=== PATIENT | male | born 1980 | race Caucasian/White ===

== ENCOUNTER 2017-09-26 12:40 | Emergency (ER) | payer SELFPAY ==
[2017-09-26] MEDS ORDERED: Aspirin 81 MG Tab.Chew PO ONE (13:40)
[2017-09-26] MEDS ORDERED: GI Cocktail Oral Solution 30 ML PO ONE (13:44)
[2017-09-26] MEDS ORDERED: Sodium Chloride 0.9% 10 ML Syringe FLUSH PRN (13:44)
--- NOTE | 2017-09-26 13:46 | EDM.PDOC ---
ED HPI GENERAL MEDICAL PROBLEM - General Chief Complaint: Chest Pain Stated Complaint: [id number] CHEST PAIN Time Seen by Provider: 09/26/17 13:30 Source of Information: Reports: Patient, RN, RN Notes Reviewed History Limitations: Reports: Language Barrier - History of Present Illness INITIAL COMMENTS - FREE TEXT/NARRATIVE: Arrives to ER by POV with c/o upper midline chest pain that is described as an ache with burning pain radiating into the throat, and also an ache in the B/L elbows with tingling into the hands and fingers that began this morning. Three days ago pt had onset of nausea and diarrhea with loss of appetite, and last night he vomited once. He report decreased appetite and has been eating soups and liquids only. Denies fevers. Admits to some chills, but not today. He has been taking pepto bismal without much relief. 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: Other (see below) (pepto bismal) Upper Chest Pain Score (Numeric/FACES): 7 - Related Data Allergies Allergy/AdvReac Type Severity Reaction Status Date / Time No Known Allergies Allergy Verified 09/26/17 13:32 Home Meds: Home Meds Bismuth Subsalicylate [Pepto-Bismol] 15 ml PO ASDIRECTED PRN 09/26/17 [History] Past Medical History HEENT History: Reports: None Cardiovascular History: Reports: None Respiratory History: Reports: None Gastrointestinal History: Reports: GERD Genitourinary History: Reports: None Musculoskeletal History: Reports: None Neurological History: Reports: None Psychiatric History: Reports: None Endocrine/Metabolic History: Reports: None Hematologic History: Reports: None Immunologic History: Reports: None Oncologic (Cancer) History: Reports: None Dermatologic History: Reports: None - Past Surgical History Head Surgeries/Procedures: Reports: None Social & Family History - Family History Family Medical History: Unobtainable - Tobacco Use Smoking Status *Q: Former Smoker Used Tobacco, but Quit: Yes Month Tobacco Last Used: july Second Hand Smoke Exposure: No - Caffeine Use Caffeine Use: Reports: None - Recreational Drug Use Recreational Drug Use: No - Living Situation & Occupation Occupation: Employed (dairy farmer) ED ROS GENERAL - Review of Systems Review Of Systems: ROS reveals no pertinent complaints other than HPI. ED EXAM, GENERAL - Physical Exam Exam: See Below Exam Limited By: Language Barrier General Appearance: Alert, WD/WN, No Apparent Distress Eye Exam: Bilateral Eye: Normal Inspection (no scleral icterus) Ears: Normal External Exam, Normal Canal, Hearing Grossly Normal, Normal TMs Nose: Normal Inspection, Normal Mucosa, No Blood Throat/Mouth: Normal Inspection, Normal Lips, Normal Teeth, Normal Gums, Normal Oropharynx, Normal Voice, No Airway Compromise Head: Atraumatic, Normocephalic Neck: Normal Inspection, Supple, Non-Tender, Full Range of Motion, Other ( shoddy cervical lymphadenopathy, no nuchal rigidity) Respiratory/Chest: No Respiratory Distress, Lungs Clear, Normal Breath Sounds, No Accessory Muscle Use, Chest Non-Tender Cardiovascular: Normal Peripheral Pulses, Regular Rate, Rhythm, No Edema, No Gallop, No JVD, No Murmur, No Rub GI/Abdominal: Normal Bowel Sounds, Soft, Non-Tender, No Organomegaly, No Distention, No Abnormal Bruit, No Mass (Male) Exam: Deferred Rectal (Males) Exam: Deferred Back Exam: Normal Inspection, Full Range of Motion. No: CVA Tenderness (L), CVA Tenderness (R) Extremities: Normal Inspection, Normal Range of Motion, Non-Tender, Normal Capillary Refill, No Pedal Edema Neurological: Alert, Oriented, CN II-XII Intact, Normal Cognition, Normal Gait, No Motor/Sensory Deficits Psychiatric: Normal Affect Skin Exam: Warm, Dry, Intact, Normal Color, No Rash EKG INTERPRETATION EKG Date: 09/26/17 Time: 13:23 Rhythm: Other (SR) Rate (Beats/Min): 74 Marissa: Normal P-Wave: Present QRS: Other (LAFB) ST-T: Normal QT: Normal Comparison: NA - No Prior EKG Course - Vital Signs Last Recorded V/S: Last Vital Signs Temp 36.1 C 09/26/17 13:26 Pulse 79 09/26/17 13:26 Resp 16 09/26/17 13:26 BP 140/87 09/26/17 13:26 Pulse Ox 100 09/26/17 13:26 - Orders/Labs/Meds Orders: Active Orders 24 hr Category Date Time Status EKG 12 Lead [EKG Documentation Completion] [RC] STAT Care 09/26/17 13:43 Active EKG Documentation Completion [RC] URGENT Care 09/26/17 13:36 Active Peripheral IV Care [RC] . DIRECTED Care 09/26/17 13:44 Active Chest 1V Frontal [CR] Stat Exams 09/26/17 13:43 Taken CULTURE STREP A CONFIRMATION [] Stat Lab 09/26/17 13:55 Results STREP SCRN A RAPID W CULT CONF [] Stat Lab 09/26/17 13:55 Results Sodium Chloride 0.9% [Saline Flush] Med 09/26/17 13:44 Active 10 ml FLUSH ASDIRECTED PRN Peripheral IV Insertion Adult [OM.PC] Stat Oth 09/26/17 13:43 Ordered Medication Orders Sodium Chloride (Saline Flush) 10 ml FLUSH ASDIRECTED PRN PRN Reason: Keep Vein Open Last Admin: 09/26/17 13:48 Dose: 10 ml Labs: Laboratory Tests 09/26/17 09/26/17 Range/Units 13:54 14:11 WBC 11.6 H (5.0-10.0) 10^3/uL RBC 4.21 L (4.6-6.2) 10^6/uL Hgb 14.4 (14.0-18.0) g/dL Hct 40.0 (40.0-54.0) % MCV 95.0 (80-100) fL MCH 34.2 H (27.0-34.0) pg MCHC 36.0 H (33.0-35.0) g/dL Plt Count 154 (150-450) 10^3/uL Neut % (Auto) 79.7 H (42.2-75.2) % Lymph % (Auto) 11.2 L (20.5-50.1) % [place] % (Auto) 8.9 H (2-8) % Eos % (Auto) 0.2 L (1.0-3.0) % Baso % (Auto) 0.0 (0.0-1.0) % Sodium 133 L (135-145) mmol/L Potassium 3.3 L (3.6-5.0) mmol/L Chloride 100 L (101-111) mmol/L Carbon Dioxide 23.0 (21.0-31.0) mmol/L Anion Gap 13.3 BUN 10 (7-18) mg/dL Creatinine 0.7 (0.6-1.3) mg/dL Est Cr Clr Drug Dosing 132.92 mL/min Estimated GFR (MDRD) > 60 BUN/Creatinine Ratio 14.28 Glucose 119 H (74-105) mg/dL Calcium 8.2 L (8.4-10.2) mg/dl Total Bilirubin 0.4 (0.2-1.0) mg/dL AST 40 (10-42) IU/L ALT 49 (10-60) IU/L Alkaline Phosphatase 58 (42-121) IU/L Troponin I < 0.02 (0.00-0.02) ng/ml Total Protein 6.8 (6.7-8.2) g/dl Albumin 3.5 (3.2-5.5) g/dl Globulin 3.3 Albumin/Globulin Ratio 1.06 Amylase 49 (28-100) U/L Lipase 19 L (22-51) U/L Meds: Medications Generic Name Dose Route Start Last Admin Trade Name Freq PRN Reason Stop Dose Admin Sodium Chloride 10 ml 09/26/17 13:44 09/26/17 13:48 Saline Flush FLUSH 10 ml ASDIRECTED PRN Administration Keep Vein Open Discontinued Medications Generic Name Dose Route Start Last Admin Trade Name Freq PRN Reason Stop Dose Admin Al Hydroxide/Mg Hydroxide 30 ml 09/26/17 13:44 09/26/17 13:48 Gi Cocktail PO 09/26/17 13:45 30 ml ONETIME ONE Administration Aspirin 324 mg 09/26/17 13:40 09/26/17 13:47 Aspirin PO 09/26/17 13:41 324 mg ONETIME ONE Administration Famotidine 20 mg 09/26/17 14:53 Pepcid IVPUSH 09/26/17 14:54 ONETIME ONE - Radiology Interpretation Free Text/Narrative:: CXR: no acute process, see Rad. report. Departure - Departure Time of Disposition: 14:59 Disposition: Home, Self-Care 01 Condition: Good Clinical Impression: Atypical chest pain Gastroesophageal reflux disease Qualifiers: Esophagitis presence: with esophagitis Qualified Code(s): K21.0 - Gastro- esophageal reflux disease with esophagitis Gastritis Qualifiers: Gastritis type: unspecified gastritis Chronicity: acute Gastritis bleeding: without bleeding Qualified Code(s): K29.00 - Acute gastritis without bleeding Instructions: Nonspecific Chest Pain, [id number], Gastritis, Adult, Food Choices for Gastroesophageal Reflux Disease, Adult, [id number], Gastroesophageal Reflux Disease, Adult, [id number] Forms: ED Department Discharge Additional Instructions: Receta: Omeprazole 20mg. Medicina para la gastritis. Trini cristian tableta de todos los wheat allen 30 wheat. Gilles doctor en la clinica en 7 de 10 wheat otra vez. - My Orders Last 24 Hours: My Active Orders 09/26/17 13:36 EKG Documentation Completion [RC] URGENT 09/26/17 13:43 EKG 12 Lead [EKG Documentation Completion] [RC] STAT Chest 1V Frontal [CR] Stat Peripheral IV Insertion Adult [OM.PC] Stat 09/26/17 13:44 Peripheral IV Care [RC] . DIRECTED Sodium Chloride 0.9% [Saline Flush] 10 ml FLUSH ASDIRECTED PRN 09/26/17 13:55 CULTURE STREP A CONFIRMATION [RM] Stat STREP SCRN A RAPID W CULT CONF [RM] Stat - Assessment/Plan Last 24 Hours: My Active Orders 09/26/17 13:36 EKG Documentation Completion [RC] URGENT 09/26/17 13:43 EKG 12 Lead [EKG Documentation Completion] [RC] STAT Chest 1V Frontal [CR] Stat Peripheral IV Insertion Adult [OM.PC] Stat 09/26/17 13:44 Peripheral IV Care [RC] . DIRECTED Sodium Chloride 0.9% [Saline Flush] 10 ml FLUSH ASDIRECTED PRN 09/26/17 13:55 CULTURE STREP A CONFIRMATION [RM] Stat STREP SCRN A RAPID W CULT CONF [RM] Stat
[2017-09-26 14:37] LABS: CHLORIDE,CL 100 mmol/L (101-111); SODIUM,NA 133 mmol/L (135-145)
[2017-09-26] MEDS ORDERED: Famotidine 20 MG/2 ML SDV IVPUSH ONE (14:53)
--- NOTE | 2017-09-26 15:03 | CR ---
Clinical history: 37-year-old male chest pain. Interpretation: No acute cardiopulmonary abnormality. Normal cardiac silhouette and bony thorax. No cephalization of vascular flow, signs of alveolar edema or dependent pleural fluid accumulation. There is no lung mass, hilar lymphadenopathy or focal lobar pneumonia. No pneumothorax. CONCLUSION: Negative exam.
--- NOTE | 2017-09-28 10:58 | EKG ---
09/26/2017 - ENIO CLAUDIO - TIME: 1:23 p.m. FINDINGS: EKG shows a heart rate of 74 beats per minute, sinus rhythm. [facility] /[id number]
== END 2017-09-26 15:20 | disposition home or self-care (01) ==
LOC: DL.ED 12:40
DX: K29.00 Acute gastritis without bleeding (principal); K21.0 Gastro-esophageal reflux disease with esophagitis; Z87.891 Personal history of nicotine dependence
CPT/HCPCS: 36415; 71045; 80053; 82150; 83690; 84484; 85025; 87081; 87430; 93005; 93010; 96374; 99285; A9270; J7050; 99284; S0028